=== PATIENT | male | born 1980 | race Caucasian/White ===

== ENCOUNTER 2025-02-22 10:03 | Emergency (ER) | payer SELFPAY ==
[2025-02-22 10:14] VITALS: BP 108/74
[2025-02-22 10:18] VITALS: BMI 24.4
[2025-02-22 10:20] VITALS: BP 108/74
--- NOTE | 2025-02-22 10:27 | ED.GENMED ---
History of Present Illness
General
Chief Complaint: Abdominal Symptoms
Time Seen by Provider: 02/22/25 10:26
History of Present Illness
History of Present Illness:
TIME OF INITIAL ENCOUNTER: 10:15 AM
HPI: Patient was sent here from [facility]. He was being transferred from [facility] person to [facility]. He said it was not related to a medical or drug-related offense. The patient has no specific
complaints including no abdominal pain.
EXAM:
GENERAL: Well appearing in no distress
HEENT: Moist oral mucosa
NEUROLOGIC: Excellent strength all extremities, no obvious coordination deficits
PSYCHIATRIC: Appropriate mental status, normal insight and judgement
EXTREMITIES: Nontender, no edema, moves all extremities equally
ABDOMEN: Soft nontender, patient declines/refuses rectal examination
SKIN: No rash, no lesions
NUMBER AND COMPLEXITY OF PROBLEMS ADDRESSED AT THE ENCOUNTER
� Chronic conditions affecting care: PTSD, substance abuse?
� Acute Exacerbation and/or Progression of Chronic Illness: This is an acute problem
� Differential Diagnosis includes: Retained foreign body
AMOUNT AND/OR COMPLEXITY OF DATA TO BE REVIEWED AND ANALYZED
� I performed an independent evaluation of and my interpretation is:
EKG:
CT:
X-rays: X-ray shows no radiopaque foreign body.
Laboratory Studies:
Other:
� Review of other/old records: No old records available for review in [facility]
� Clinical information was obtained by an independent historian: I spoke to corrections officers at bedside
� Prescriptions/Medications Considered but not given:
� Further testing considered but not performed:
RISK OF COMPLICATIONS AND/OR MORBIDITY OR MORTALITY OF PATIENT MANAGEMENT
� Social determinants of health affecting care: Currently in the care of [facility]
� Discussion with other providers:
� Escalation of care including admission/observation vs risk of discharge considered: X-rays unremarkable.
ANY OTHER UPDATES:
Phy Exam
Physical Exam
Physical Exam:
See HPI
Course
Orders/Labs/Results
Orders:
Orders
02/22/25 10:27
CR Abdomen - 1 View Urgent
Reason For Exam: eval for 'horseshoe shaped structure seen at [facility]
Vital Signs
Initial and Last Documented VS:
Initial Vital Signs
Pulse Resp
59 8
02/22/25 10:10 02/22/25 10:10
Last Documented Vital Signs
Temp Pulse Resp BP Pulse Ox
36.4 C 58 15 108/74 98
02/22/25 10:20 02/22/25 10:20 02/22/25 10:20 02/22/25 10:20 02/22/25 10:20
*Critical Care Note
Total Time (30-74mins, 75-104mins- exclusive of procedures): Not Applicable
ED Attending Note
-
Portions of this chart may have been created with voice recognition software.� Occasional wrong word or��sound alike� substitutions may have occurred due to the inherent limitations of voice recognition software.
Discharge Plan
Departure
Patient Disposition: Home (Routine Discharge)
Date of Disposition: 02/22/25
Time of Disposition: 11:41
Patient with high blood pressure during this ER visit?: Yes
Discharge Problem:
Encounter for medical assessment
Prescriptions:
No Action
No Current Medications
0
Referrals:
UNKNOWN - PT DOES,NOT KNOW [Family Provider] -
Activity Restrictions/Additional Instructions:
We obtained a x-ray of the abdomen and radiologist sees no foreign body or other concern.
Interventions
Interventions:
*Risk Screen - Suicide Last Done: 02/22/25 10:14
*General Assessment Last Done: 02/22/25 10:20
*Neglect/Abuse Screening Last Done: 02/22/25 10:14
*ED- Fall Risk Assessment Last Done: 02/22/25 10:20
*ED COVID-19 Vaccine History Last Done: 02/22/25 10:20
YQ-Vsfzqp-Itqovxgqpl Assessment Last Done: 02/22/25 10:20
Discharge Date and Time
Print Language: SERBIAN
--- NOTE | 2025-02-22 10:29 | EDRN ---
Dr. Gorman currently at the [facility] bedside
== END 2025-02-22 11:53 ==
LOC: EMR 10:03
PROVIDERS: EMERGENCY PHYSICIAN Emergency Medicine
DX: Z02.89 Encounter for other administrative examinations (principal)
CPT/HCPCS: 99283; 74018